=== PATIENT | female | born 1995 | race Caucasian/White ===

== ENCOUNTER 2018-04-29 18:57 | Emergency (ER) | payer OTHER ==
[2018-04-29 19:43] VITALS: BP 121/76; PULSE 92; TEMP 98.3; BMI 29.9
--- NOTE | 2018-04-29 21:07 | PDOC ---
History of Present Illness - General Chief Complaint: Revisit, Lab Variance Stated Complaint: FLU LIKE SYMPTOM Time Seen by Provider: 04/29/18 20:32 History Source: Patient Exam Limitations: Clinical Condition - History of Present Illness Initial Comments: 04/29/18 21:02 Patient presented for evaluation status post being called by PCPs office due to blood culture showing gram-positive after patient presented to PCP office yesterday with 4 day history of nasal congestion, body aches and flulike symptoms. Called patient PCP office and spoke to Dr. Silvestre who indicated blood cultures shows gram-positive even though CBC shows no elevated is WBCs with WBC of 7 on CBC done yesterday. She reported feeling better today with normal fevers or body aches and have improved symptoms today. Patient is being treated with Z-Danilo by PCP for URI. Patient denies any symptoms now Timing/Duration: other (4 days) Past History - Suicide/Smoking/Psychosocial Hx Smoking History: Unknown if ever smoked Hx Alcohol Use: No Drug/Substance Use Hx: No Review of Systems - Review of Systems Able to Perform ROS?: Yes Is the patient limited Italian proficient: No Constitutional: No: Chills, Fever, Malaise, Weakness HEENTM: No: Symptoms Reported, See HPI, Eye Pain, Blurred Vision, Tearing, Recent change in vision, Double Vision, Cataracts, Ear Pain, Ocular Prothesis, Ear Discharge, Nose Pain, Nose Congestion, Tinnitus, Nose Bleeding, Hearing Loss , Throat Pain, Throat Swelling, Mouth Pain, Dental Problems, Difficulty Swallowing, Mouth Swelling, Other Respiratory: No: Symptoms reported, See HPI, Cough, Orthopnea, Shortness of Breath, SOB with Exertion, SOB at Rest, Stridor, Wheezing, Productive cough, Hemoptysis, Other Cardiac (ROS): No: Symptoms Reported, See HPI, Chest Pain, Edema, Irregular Heart Rate, Lightheadedness, Palpitations, Syncope, Chest Tightness, Other ABD/GI: No: Nausea, Vomiting All Other Systems: Reviewed and Negative *Physical Exam - Vital Signs Last Vital Signs Temp Pulse Resp BP Pulse Ox 98.3 F 92 H 20 121/76 99 04/29/18 19:33 04/29/18 19:33 04/29/18 19:33 04/29/18 19:33 04/29/18 19:33 - Physical Exam Comments: 04/29/18 21:04 GENERAL: Well developed, well nourished. Awake and alert. No acute distress. HEENT: Normocephalic, atraumatic. PERRLA, EOMI. No conjunctival pallor. Sclera are non-icteric. Moist mucous membranes. Oropharynx is clear. NECK: Supple. Full ROM. CARDIOVASCULAR: Regular rate and rhythm. No murmurs, rubs, or gallops. Distal pulses are 2+ and symmetric. PULMONARY: No evidence of respiratory distress. Lungs clear to auscultation bilaterally. No wheezing, rales or rhonchi. ABDOMINAL: Soft. Non-tender. Non-distended. No rebound or guarding. No organomegaly. Normoactive bowel sounds. MUSCULOSKELETAL Normal range of motion at all joints. EXTREMITIES: No cyanosis. No clubbing. No edema. No calf tenderness. SKIN: Warm and dry. Normal capillary refill. No rashes. No jaundice. NEUROLOGICAL: Alert, awake, appropriate. Gait is normal without ataxia. PSYCHIATRIC: Cooperative. Good eye contact. Appropriate mood General Appearance: Yes: Nourished, Appropriately Dressed. No: Apparent Distress Moderate Sedation - Procedure Monitoring Vital Signs: Procedure Monitoring Vital Signs Temperature 98.3 F 04/29/18 19:33 Pulse Rate 92 H 04/29/18 19:33 Respiratory Rate 20 04/29/18 19:33 Blood Pressure 121/76 04/29/18 19:33 O2 Sat by Pulse Oximetry (%) 99 04/29/18 19:33 ED Treatment Course - LABORATORY CBC & Chemistry Diagram: 04/29/18 21:08 Medical Decision Making - Medical Decision Making 04/29/18 21:05 Patient presenting for evaluation status post being called by PCP office with abnormal labs after presented to PCP of his with 4 day history of URI symptoms. Patient being treated with Z-Danilo for URI by PCP. Blood cultures done by PCP yesterday shows gram-positive cocci with normal CBC. This specimen was likely contaminated as patient feeling better and does not look septic or sick today. Repeat CBC and blood culture ordered. Patient be discharged home if normal CBC pending blood culture results. 04/29/18 21:28 Repeat CBC shows normal WBC of6. Patient stable for discharge pending BCX results. Patient advised to follow-up with PCP *DC/Admit/Observation/Transfer Diagnosis at time of Disposition: Abnormal laboratory test result URI (upper respiratory infection) Qualifiers: URI type: unspecified URI Qualified Code(s): J06.9 - Acute upper respiratory infection, unspecified - Discharge Dispostion Disposition: HOME Condition at time of disposition: Stable Decision to Admit order: No - Referrals Referrals: Gin Garcia [Primary Care Provider] - - Patient Instructions Additional Instructions: Your CBC labs was normal. You will be contacted with blood culture results. Previous labs was probably contaminated. Come back to ER if worsening fever, weakness, dizziness or severe body aches - Post Discharge Activity
[2018-04-29 21:18] LABS: BASO % 0.4 % (0-2.0); EOS % 1.5 % (0-4.5); HEMATOCRIT 38.3 % (32.4-45.2); HEMOGLOBIN 13.4 GM/dL (10.7-15.3); LYMPH % 36.9 % (8-40); MCH 31.2 pg (25.7-33.7); MCHC 35.1 g/dl (32.0-36.0); MEAN CELL VOLUME 88.8 fl (80-96); MEAN PLT VOLUME 8.8 fl (7.5-11.1); MONO % 7.3 % (3.8-10.2); NEUT % 53.9 % (42.8-82.8); PLATELET COUNT 225 K/MM3 (134-434); RBC 4.32 M/mm3 (3.60-5.2); RDW 12.8 % (11.6-15.6); WHITE BLOOD COUNT 6.2 K/mm3 (4.0-10.0)
== END 2018-04-29 21:46 | disposition home or self-care (01) ==
LOC: JERFT 18:57 → JER 18:57 → JERFT 21:46
DX: J06.9 Acute upper respiratory infection, unspecified (principal); R78.81 Bacteremia
CPT/HCPCS: 36415; 85025; 87040; 99281-25